=== PATIENT | male | born 1960 | race Caucasian/White ===

== ENCOUNTER 2017-08-12 16:18 | Observation (INO) | payer OTHER ==
[2017-08-12 16:49] VITALS: BP 131/80; PULSE 95; RESP 16; TEMP 97.9; O2SAT 99
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
[2017-08-12] MEDS: MORPHINE SULFATE 2 MG/ML SYRINGE IV PUSH PRN ×2 (19:28→23:12)
[2017-08-12 20:00] VITALS: BP 122/67; PULSE 103; RESP 18; TEMP 99.6; O2SAT 96
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
[2017-08-13] VITALS: BP 119/62; PULSE 81; RESP 18; TEMP 98.2; O2SAT 96
[2017-08-13] MEDS: MORPHINE SULFATE 2 MG/ML SYRINGE IV PUSH PRN ×5 (03:05→17:30)
[2017-08-13 05:24] LABS: AUTOMATED NEUTROPHIL # 3.5 TH/MM3 (1.8-7.7); BASOPHIL # 0.1 TH/MM3 (0-0.2); BASOPHIL % 1.1 % (0.0-2.0); EOSINOPHIL # 0.3 TH/MM3 (0-0.4); EOSINOPHIL % 4.8 % (0.0-4.0); HEMATOCRIT 34.9 % (39.0-51.0); HEMOGLOBIN 11.8 GM/DL (13.0-17.0); LYMPH % 19.2 % (9.0-44.0); LYMPHOCYTE # 1.1 TH/MM3 (1.0-4.8); MEAN CELL VOLUME 88.9 FL (80.0-100.0); MEAN CORPUSCULAR HEMOGLOBIN 30.1 PG (27.0-34.0); MEAN CORPUSCULAR HGB CONC 33.9 % (32.0-36.0); MEAN PLATELET VOLUME 6.9 FL (7.0-11.0); NEUT % 57.9 % (16.0-70.0); PLATELET COUNT 500 TH/MM3 (150-450); RED BLOOD COUNT 3.93 MIL/MM3 (4.50-5.90); RED CELL DISTRIBUTION WIDTH 13.1 % (11.6-17.2)
[2017-08-13 05:52] LABS: BICARBONATE 25.7 MEQ/L (21.0-32.0); CREATININE 0.61 MG/DL (0.60-1.30)
[2017-08-13 08:00] VITALS: BP 111/57; PULSE 87; RESP 19; TEMP 98.2; O2SAT 99
[2017-08-13 11:35] VITALS: BP 118/69; PULSE 99; RESP 19; TEMP 98.1; O2SAT 97
--- NOTE | 2017-08-13 12:06 | HHI.PR ---
Subjective Remarks Follow-up for suspected cervical stenosis and a recent fall. Patient was transferred from [facility] for neurosurgical evaluation. Patient is currently doing well. Neurosurgery evaluated patient and recommends conservative management at this point. Neurosurgery cleared for discharge. Objective Vitals Vital Signs Date Time Temp Pulse Resp B/P (MAP) Pulse Ox O2 Delivery O2 Flow Rate FiO2 08/13/17 11:35 98.1 99 19 118/69 (85) 97 08/13/17 08:00 98.2 87 19 111/57 (75) 99 08/13/17 00:00 98.2 81 18 119/62 (81) 96 08/12/17 20:00 99.6 103 18 122/67 (85) 96 08/12/17 16:49 97.9 95 16 131/80 (97) 99 I/O 08/12/17 08/12/17 08/12/17 08/13/17 08/13/17 08/13/17 07:00 15:00 23:00 07:00 15:00 23:00 Intake Total 240 ml Output Total 1600 ml Balance -1360 ml Intake Oral 240 ml Output Urine Total 1600 ml Result Diagram: 08/13/17 0443 08/13/17 0443 Objective Remarks GENERAL: Alert, oriented 3, NAD. SKIN: Warm and dry. HEAD: Normocephalic. EYES: No scleral icterus. No injection or drainage. NECK: Supple, trachea midline. No JVD or lymphadenopathy. CARDIOVASCULAR: Regular rate and rhythm without murmurs, gallops, or rubs. RESPIRATORY: Breath sounds equal bilaterally. No accessory muscle use. GASTROINTESTINAL: Abdomen soft, non-tender, nondistended. MUSCULOSKELETAL: No cyanosis, or edema. BACK: Nontender without obvious deformity. No CVA tenderness. Procedures None A/P Assessment and Plan Mr. Mosqueda is a 56-year-old male who was transferred from [facility] for neurosurgical evaluation. Neurosurgery evaluated patient and reviewed images that were sent with him from [facility]. No current plan to do any surgical intervention. Neurosurgery cleared for discharge. Neurosurgery recommended outpatient follow-up. Chronic C5 compression fracture Right-sided C6-C7 radiculopathy Chronic L2 compression fracture Neurosurgery recommends 2-4 weeks evaluation in the outpatient setting. We will send the patient back to [facility]. Full code. Discharge patient to home Condition on discharge: Improved Regular Diet as tolerated Ad Maya activity Rx written: No new medications. Follow-up with primary care physician as needed. Neurosurgery with Dr. Womack in 2-4 weeks. Cresencio Desir DO Aug 13, 2017 12:05 pm
[2017-08-13 15:45] VITALS: BP 116/62; PULSE 98; RESP 18; TEMP 98.2; O2SAT 97
== END 2017-08-13 19:46 | disposition short-term general hospital (02) ==
LOC: N07B 16:18
PROVIDERS: ADMIT Hospitalist; ATTEND Hospitalist
DX: M48.02 Spinal stenosis, cervical region (principal); M54.12 Radiculopathy, cervical region; M48.52XA Collapsed vertebra, not elsewhere classified, cervical region, initial encounter for fracture; M48.56XA Collapsed vertebra, not elsewhere classified, lumbar region, initial encounter for fracture; S72.002A Fracture of unspecified part of neck of left femur, initial encounter for closed fracture; R20.0 Anesthesia of skin; M25.562 Pain in left knee; M25.532 Pain in left wrist; R53.1 Weakness; W11.XXXA Fall on and from ladder, initial encounter
CPT/HCPCS: 80048; 85025; 96374; 96376; G0378; J2270